=== PATIENT | male | born 1985 | race Caucasian/White ===

== ENCOUNTER 2024-03-24 18:56 | Emergency (ER) | payer OTHER ==
[~2024-03-24] VITALS: Ht 175.3 cm; Wt 90.9 kg
[2024-03-24 19:05] VITALS: BP 133/84; TEMP 98.3
[2024-03-24 19:51] VITALS: PULSE 68
== END 2024-03-24 19:50 | disposition home or self-care (01) ==
LOC: COL.ER 18:56
DX: S61.317A Laceration without foreign body of left little finger with damage to nail, initial encounter (principal); Z23 Encounter for immunization; W26.0XXA Contact with knife, initial encounter; Y93.G3 Activity, cooking and baking; Y92.000 Kitchen of unspecified non-institutional (private) residence as the place of occurrence of the external cause